=== PATIENT | male | born 1965 | race Hispanic/Latino ===

== ENCOUNTER 2022-09-20 14:54 | Emergency (ER) | payer SELFPAY ==
[2022-09-20] MEDS ORDERED: Lidocaine 1% PF 5 ML VIAL ONE (18:22)
== END 2022-09-20 21:43 | disposition home or self-care (01) ==
LOC: ERS 14:54
DX: S61.412A Laceration without foreign body of left hand, initial encounter (principal); W45.8XXA Other foreign body or object entering through skin, initial encounter; Z23 Encounter for immunization
CPT/HCPCS: 12002